=== PATIENT | female | born 1945 | race Caucasian/White ===

== ENCOUNTER 2017-04-10 16:23 | Emergency (ER) | payer MEDICARE ==
[~2017-04-10] VITALS: Ht 154.9 cm; Wt 80.7 kg
[2017-04-10] MEDS ORDERED: HYDR12CA (16:34)
--- NOTE | 2017-04-10 16:57 | REP ---
Clinical: Trauma. Injury. Technique: AP, lateral, bilateral oblique views of the left hand. Findings: Posterolateral dislocation at the fifth digit proximal interphalangeal joint is appreciated. No obvious acute associated fracture. Underlying diffuse moderate osteoarthritic degenerative changes noted throughout the hand and wrist. Impression: Posterolateral dislocation at the fifth PIP joint. Moderate to early advanced osteoarthritic degenerative changes. Signed by Michael Ko MD 04/10/2017 04:48 P
[2017-04-10] MEDS ORDERED: IBUPROFEN 600 MG TAB PO ONE (19:45)
[2017-04-10 20:18] VITALS: BP 138/67
--- NOTE | 2017-04-11 08:42 | REP ---
Clinical: Status post reduction. Technique: AP, lateral, bilateral oblique views of the left fifth digit. Comparison: 04/10/2017 at 04:48 p.m. Findings: The patient is status post satisfactory reduction at the fifth proximal interphalangeal joint. No obvious acute fracture or residual dislocation is appreciated. Underlying osteoarthritic changes noted. Impression: Satisfactory reduction at the PIP joint. No obvious acute fracture. Signed by Michael Ko MD 04/11/2017 08:33 A
== END 2017-04-10 20:20 | disposition home or self-care (01) ==
LOC: M ED 17:44
DX: S63.287A Dislocation of proximal interphalangeal joint of left little finger, initial encounter (principal); W01.198A Fall on same level from slipping, tripping and stumbling with subsequent striking against other object, initial encounter; Y92.094 Garage of other non-institutional residence as the place of occurrence of the external cause; Y93.01 Activity, walking, marching and hiking; Y99.8 Other external cause status; I10 Essential (primary) hypertension; Z79.899 Other long term (current) drug therapy; Z88.8 Allergy status to other drugs, medicaments and biological substances; Z88.5 Allergy status to narcotic agent; Z88.1 Allergy status to other antibiotic agents

== ENCOUNTER → 2017-08-21 | Outpatient (CLI) | payer MEDICARE ==
[~2017-08-21] MED LIST: HYDR12CA PO
--- NOTE | 2017-08-21 11:14 | REPMRS ---
Patient History The patient states she had a clinical breast exam in June 2017. Patient is postmenopausal. No known family history of cancer. Benign excisional biopsy of the left breast. Digital Mammo Screening Bilat: August 21, 2017 - Exam #: [id number] Bilateral CC and MLO view(s) were taken. Technologist: Ce Barksdale Technologist Prior study comparison: July 22, 2016, bilateral digital mammo screening bilat performed at [facility]. July 31, 2015, left breast digital mammo diagnostic unilateral performed at [facility]. FINDINGS: There are scattered fibroglandular densities. There has been no change in the appearance of the mammogram from the prior studies. There is a mild amount of residual fibroglandular tissue which is fairly symmetric. There is no interval development of dominant mass, architectural distortion, or clustered microcalcification suggestive of malignancy. ASSESSMENT: BI-RADS/ACR category 1 mammogram. Negative. Recommendation Routine screening mammogram in 1 year (for women over age 40). This mammogram was interpreted with the aid of an FDA-approved computer-aided dectection system. Electronically Signed By: Dayday Olguin MD 08/21/17 [id number]
== END ==
LOC: M RAD 08:45
PROVIDERS: ATTEND Internal Medicine
DX: Z12.31 Encounter for screening mammogram for malignant neoplasm of breast (principal)

== ENCOUNTER → 2017-08-28 | Outpatient (CLI) | payer MEDICARE ==
[~2017-08-28] VITALS: Ht 154.9 cm; Wt 80.7 kg
[~2017-08-28] MED LIST changes: +LIDOCAINE 2% INJ 100 MG/5 ML SDV (FOR ANES.) As Ordered ONE; +NS 1,000 ML IV SCH; +PROPOFOL 200 MG/20 ML VIAL As Ordered ONE
--- NOTE | 2017-08-28 09:44 | ROOR ---
Patient Name: Jackie Ramos Procedure Date: 08/28/2017 9:21 AM Date of : 1945 Age: 71 Room: [facility] Gender: Female Note Status: Finalized Procedure: Colonoscopy Indications: Screening for colorectal malignant neoplasm Providers: Pineda Singh MD Referring MD: GM EASON MD Requesting Provider: Medicines: Monitored Anesthesia Care Complications: No immediate complications. Procedure: Pre-Anesthesia Assessment: - Prior to the procedure, a History and Physical was performed, and patient medications and allergies were reviewed. The patient is competent. The risks and benefits of the procedure and the sedation options and risks were discussed with the patient. All questions were answered and informed consent was obtained. Patient identification and proposed procedure were verified by the physician, the nurse and the scenario writer in the procedure room. Mental Status Examination: alert and oriented. Airway Examination: normal oropharyngeal airway and neck mobility. Respiratory Examination: clear to auscultation. CV Examination: normal. Prophylactic Antibiotics: The patient does not require prophylactic antibiotics. Prior Anticoagulants: The patient has taken no previous anticoagulant or antiplatelet agents. ASA Grade Assessment: III - A patient with severe systemic disease. After reviewing the risks and benefits, the patient was deemed in satisfactory condition to undergo the procedure. The anesthesia plan was to use monitored anesthesia care (MAC). Immediately prior to administration of medications, the patient was re-assessed for adequacy to receive sedatives. The heart rate, respiratory rate, oxygen saturations, blood pressure, adequacy of pulmonary ventilation, and response to care were monitored throughout the procedure. The physical status of the patient was re-assessed after the procedure. The Colonoscope was introduced through the anus and advanced to the terminal ileum, with identification of the appendiceal orifice and IC valve. The colonoscopy was performed without difficulty. The patient tolerated the procedure well. The quality of the bowel preparation was good. The terminal ileum, ileocecal valve, appendiceal orifice, and rectum were photographed. Scope insertion time was 3 minutes. Scope withdrawal time was 8 minutes. The total duration of the procedure was 12 minutes. Findings: Hemorrhoids were found on perianal exam. Multiple small and large-mouthed diverticula were found from sigmoid to descending colon. There was no evidence of diverticular bleeding. There is some congestion and erythema of mucosa in sigmoid colon. Non-bleeding external and internal hemorrhoids were found during retroflexion. The hemorrhoids were large. The terminal ileum appeared normal. Impression: - Hemorrhoids found on perianal exam. - Moderate diverticulosis from sigmoid to descending colon. There was no evidence of diverticular bleeding. There is some congestion and erythema of mucosa in sigmoid colon. - Non-bleeding external and internal hemorrhoids. - The examined portion of the ileum was normal. - No specimens collected. Recommendation: - Patient has a contact number available for emergencies. The signs and symptoms of potential delayed complications were discussed with the patient. Return to normal activities tomorrow. Written discharge instructions were provided to the patient. - High fiber diet. - Continue present medications. - Repeat colonoscopy in 5-10 years for screening purposes depending on functional status. - Return to GI clinic in 5-10 years. - Return to primary care physician. Pineda Singh MD Pineda Singh MD 08/28/2017 9:43:51 AM This report has been signed electronically. Number of Addenda: 0 Note Initiated On: 08/28/2017 9:21 AM Estimated Blood Loss: Estimated blood loss was minimal.
[2017-08-28 10:06] VITALS: BP 120/73
== END ==
LOC: M OPP 08:11
PROVIDERS: ATTEND Internal Medicine Gastroenterology
DX: Z12.11 Encounter for screening for malignant neoplasm of colon (principal); K64.8 Other hemorrhoids; K64.4 Residual hemorrhoidal skin tags; K57.30 Diverticulosis of large intestine without perforation or abscess without bleeding; K63.89 Other specified diseases of intestine; I10 Essential (primary) hypertension; M19.90 Unspecified osteoarthritis, unspecified site; Z85.820 Personal history of malignant melanoma of skin; Z78.0 Asymptomatic menopausal state; Z96.653 Presence of artificial knee joint, bilateral; Z88.8 Allergy status to other drugs, medicaments and biological substances; Z88.1 Allergy status to other antibiotic agents; Z88.5 Allergy status to narcotic agent; Z79.899 Other long term (current) drug therapy

== ENCOUNTER → 2019-07-23 | Outpatient (CLI) | payer MEDICARE ==
[~2019-07-23] MED LIST changes: -LIDOCAINE 2% INJ 100 MG/5 ML SDV (FOR ANES.) As Ordered ONE; -NS 1,000 ML IV SCH; -PROPOFOL 200 MG/20 ML VIAL As Ordered ONE
--- NOTE | 2019-07-23 16:15 | REP ---
BILATERAL MAMMOGRAM WITH 3D TOMOSYNTHESIS: Bilateral mammography was performed in the MLO and ML projections with 3D tomosynthesis. Comparison made with multiple prior studies, Most recent of which is 08/23/2017. There is no family history of breast cancer. The [facility] lifetime risk of breast cancer is 4.2%. There is mild scattered fibroglandular tissue again seen bilaterally. For the most part the findings are unchanged. However there does appear to be a new 5 mm nodule at the 6 o'clock left breast approximately 9-10 cm from the nipple. There is no other new nodule or clustered microcalcifications. IMPRESSION: ACR 0 incomplete. There appears to be a new 5 mm nodule in the region of 6 o'clock left breast posteriorly. Recommend spot compression views and ultrasound to further evaluate. BIRADS 0: BI-RADS/ACR category 0 mammogram, Incomplete: Need additional imaging evaluation and/or prior mammograms for comparison. This mammogram was interpreted with the aid of an FDA-approved computer-aided detection system. The patient states she had a clinical breast exam in 06/2019. The patient letter being requested is M0.
--- NOTE | 2019-07-26 15:29 | DEXA ---
AP SPINE L1 - L4 1.101 -0.7 1.1 LT FEMUR TOTAL 0.887 -1.0 0.7 LT NECK 0.789 -1.8 0.1 RT FEMUR TOTAL 0.894 -0.9 0.8 RT NECK 0.868 -1.2 0.6 TOTAL BODY TOTAL OTHER COMMENTS: Normal bone densitometry of the spine. There is low bone density of the hips. The density of the spine has increased 2.8% since the initial exam on 04/10/2001. The spine density has increased 4.7% since the most recent exam on 07/20/2015. The density of the left hip has decreased 9.5% since the initial exam on 04/10/2001. The density of the left hip has increased 4.1% since the most recent exam on 07/20/2015. The density of the right hip has decreased 9.1% since the initial exam on 04/10/2001. The density of the right hip has not changed since the most recent exam on 07/20/2015. FOLLOW-UP: Recommendation for the next bone density exam: 2 years. ARNOL
== END ==
LOC: M WHC 14:09
PROVIDERS: ATTEND Internal Medicine
DX: R92.2 Inconclusive mammogram (principal); Z78.0 Asymptomatic menopausal state; N63.20 Unspecified lump in the left breast, unspecified quadrant

== ENCOUNTER → 2019-08-13 | Outpatient (CLI) | payer MEDICARE ==
--- NOTE | 2019-08-13 15:25 | REP ---
DIAGNOSTIC MAMMOGRAM OF THE LEFT BREAST WITH LEFT BREAST ULTRASOUND: Multiple spot compression views of the left breast performed. Well circumscribed nodule is confirmed at 6-o'clock position posteriorly in the left breast. Real-time sonographic evaluation of the 6-o'clock region of the left breast demonstrates a cyst which measures 4 x 3 x 6 mm. This is felt to correspond to the mammographic abnormality. IMPRESSION: ACR 2 benign. 5 mm nodule at 6-o'clock position corresponds to a benign cyst by ultrasound. Recommend followup mammogram in 1 year. Electronically Signed by Dayday Olguin MD 08/14/2019 10:23 A
== END ==
LOC: M RAD 09:31
PROVIDERS: ATTEND Internal Medicine
DX: R92.2 Inconclusive mammogram (principal)

== ENCOUNTER 2023-07-28 14:49 | Emergency (ER) | payer MEDICARE ==
[~2023-07-28] VITALS: Ht 152.4 cm; Wt 85.0 kg
[2023-07-28] MEDS ORDERED: AMLO25TA PO (16:42)
[2023-07-28 18:25] LABS: BASO % 0.2 % (0.0-1.0); EOS % 0.2 % (0.0-3.0); HEMOGLOBIN 13.9 g/dl (12.0-15.5); LYMPH % 8.8 % (24.0-44.0); MEAN CORPUSCULAR HEMOGLOBIN 28.3 pg (27.0-33.0); MEAN CORPUSCULAR HGB CONC 32.3 g/dl (32.0-36.5); MEAN CORPUSCULAR VOLUME 87.6 fl (80.0-96.0); MONO # 0.3 10^3/uL (0.0-0.8); MONO % 2.7 % (2.0-8.0); NEUTROPHILS # 9.5 10^3/uL (1.5-8.5); NEUTROPHILS % 87.7 % (36.0-66.0); PLATELET COUNT, AUTOMATED 236 10^3/uL (150-450); RED BLOOD COUNT 4.91 10^6/uL (4.00-5.40); WHITE BLOOD COUNT 10.8 10^3/uL (4.0-10.0)
[2023-07-28 18:49] LABS: ALBUMIN 3.9 G/DL (3.2-5.2); ALKALINE PHOSPHATASE 105 U/L (46-116); ALT/SGPT 24 U/L (7.0-40); AST/SGOT 39 U/L (<34); BILIRUBIN,TOTAL 0.7 MG/DL (0.3-1.2); BLOOD UREA NITROGEN 18 MG/DL (9-23); CALCIUM LEVEL 9.4 MG/DL (8.3-10.6); CARBON DIOXIDE LEVEL 25 MMOL/L (20-31); CHLORIDE LEVEL 104 MMOL/L (98-107); GLOMERULAR FILTRATION RATE > 60.0 (>39); GLUCOSE, FASTING 114 MG/DL (74-106); POTASSIUM SERUM 4.8 MMOL/L (3.5-5.1); SODIUM LEVEL 140 MMOL/L (136-145); TOTAL PROTEIN 7.3 G/DL (5.7-8.2)
[2023-07-28 18:53] LABS: RSV AMPLIFICATION NEGATIVE (NEGATIVE)
[2023-07-28 19:00] VITALS: BP 182/88
[2023-07-28 19:04] VITALS: O2SAT 99
[2023-07-28 19:11] VITALS: TEMP 98.7
[2023-07-28] MEDS ORDERED: MORPHINE 2 MG/ML 1ML VIAL IV PRN (19:20)
== END 2023-07-28 19:25 | disposition short-term general hospital (02) ==
LOC: M ED 14:49
DX: S12.001A Unspecified nondisplaced fracture of first cervical vertebra, initial encounter for closed fracture (principal); S12.101A Unspecified nondisplaced fracture of second cervical vertebra, initial encounter for closed fracture; W01.0XXA Fall on same level from slipping, tripping and stumbling without subsequent striking against object, initial encounter; Y92.009 Unspecified place in unspecified non-institutional (private) residence as the place of occurrence of the external cause; Z79.899 Other long term (current) drug therapy; Z88.6 Allergy status to analgesic agent; Z88.1 Allergy status to other antibiotic agents; Z88.5 Allergy status to narcotic agent; Z88.8 Allergy status to other drugs, medicaments and biological substances

== ENCOUNTER → 2024-06-19 | Outpatient (CLI) | payer MEDICARE ==
[~2024-06-19] MED LIST changes: +AMLO25TA PO
== END ==
LOC: M EKG 10:51
PROVIDERS: ATTEND Anesthesiology
DX: Z01.818 Encounter for other preprocedural examination (principal)

== ENCOUNTER 2024-06-28 07:14 | Day surgery (SDC) | payer MEDICARE ==
[~2024-06-28] VITALS: Ht 157.5 cm; Wt 79.3 kg
[2024-06-28] MEDS ORDERED: LR 1,000 ML IV SCH (07:25)
[2024-06-28] MEDS ORDERED: MIDAZOLAM INJ 2MG/2ML VIAL As Ordered ONE (08:43)
[2024-06-28] MEDS ORDERED: LIDOCAINE 2% 100MG/5ML SDV (FOR ANES.) As Ordered ONE (08:43)
[2024-06-28] MEDS ORDERED: propofoL 200 MG/20 ML VIAL As Ordered ONE (08:43)
[2024-06-28] MEDS ORDERED: fentaNYL 100 MCG/2 ML INJECTION As Ordered ONE (08:43)
[2024-06-28] MEDS ORDERED: ONDANSETRON 4MG 2ML VIAL As Ordered ONE (10:08)
[2024-06-28] MEDS ORDERED: KETOROLAC 60MG 2ML VIAL As Ordered ONE (10:08)
[2024-06-28] MEDS: LIDOCAINE W/EPINEPHRINE 1% 20ML VIAL As Ordered ONE (10:14)
[2024-06-28 11:20] VITALS: BP 152/70; TEMP 96.9; O2SAT 100
== END 2024-06-28 11:35 | disposition home or self-care (01) ==
LOC: M SDC 07:14
PROVIDERS: ATTEND Surgery
DX: D17.1 Benign lipomatous neoplasm of skin and subcutaneous tissue of trunk (principal); I10 Essential (primary) hypertension; Z79.899 Other long term (current) drug therapy; Z88.1 Allergy status to other antibiotic agents; Z88.8 Allergy status to other drugs, medicaments and biological substances; Z88.5 Allergy status to narcotic agent; Z88.6 Allergy status to analgesic agent
CPT/HCPCS: 11406; 88304; J1100; J1885; J2250; J2405; J3010